=== PATIENT | male | born 1955 | race Caucasian/White ===

== ENCOUNTER 2021-09-06 06:20 | Day surgery (SDC) | payer MEDICARE ==
[~2021-09-06] VITALS: Ht 188 cm; Wt 128.0 kg
[~2021-09-06 06:20] MED LIST: CINNAMON500 MG PO; METOPROLOL SUCC50 MG PO; ONE-DAILY MULT1 EAC1 PO
--- NOTE | 2021-09-06 08:28 | NUR ---
09/06/21 0828 Chen Leary 0818 PATIENT ARRIVES TO PACU SLEEPING ON LEFT SIDE. AWAKENS WITH REPEATED VERBAL STIMULI, ROLLS TO BACK, BACK TO SLEEP. RESP EVEN AND UNLABORED, NC AT 2 LITERS. OXYGEN TURNED OFF.
--- NOTE | 2021-09-06 08:46 | NUR ---
PT TAKEN TO SCOPE RM BY OR STAFF, CONNECTED WITH PT'S . SHE HAS DECIDED TO REMAIN, WOULD LIKE TO VISIT WITH DR YOUNGBLOOD UPON COMPLETION OF SCOPE. GAVE HER DIRECTIONS AND ENCOURAGEMENT. WILL FOLLOW
--- NOTE | 2021-09-06 18:14 | EKG ---
[facility] [address] [facility] [place], [place] [address] Signed Sinus rhythm with frequent premature ventricular complexes Left axis deviation Abnormal ECG No previous ECGs available Confirmed by AMINATA GONZALEZ MD ([id number]) on 09/06/2021 6:14:25 PM Electronically Signed By: AMINATA GONZALEZ MD 09/06/211813 PATIENT NAME: RODRICK THRASHER STEFF Electrocardiogram DATE OF : 55 PHYSICIAN: AMINATA GONZALEZ MD REPORT #: [id number] REPORT IS CONFIDENTIAL AND NOT TO BE RELEASED WITHOUT AUTHORIZATION
--- NOTE | 2021-09-07 07:53 | OR ---
[facility] [address] [place], [place] [address] Signed DATE OF OPERATION: 09/06/2021 SURGEON: Riky Chow MD PREOPERATIVE DIAGNOSES: 1. Maternal grandmother with colon cancer in her 60s and of colon cancer at age 68. 2. Mother with Crohn disease. 3. Internal hemorrhoids. 4. Personal history of hyperplastic colonic polyps. 5. Diverticulosis. POSTOPERATIVE DIAGNOSES: 1. A 12 mm pedunculated polyp, proximal right colon/opposite ileocecal valve (snare). 2. A 12 mm sessile polyp mid right colon (snare). 3. 5 mm polyp at 65 cm. 4. 4 mm polyp at 40 cm. 5. Moderate sigmoid diverticulosis. 6. Minimal internal hemorrhoids. PROCEDURE: Colonoscopy with snare polypectomy x2 and hot biopsies. ESTIMATED BLOOD LOSS: None. INDICATIONS: Rodrick is a 66-year-old gentleman who returns now for his followup colonoscopy. His maternal grandmother was diagnosed with her colon cancer in her 60s. She from the colon cancer at age 68. His mother has Crohn disease. Rodrick underwent an initial sigmoidoscopy followed by colonoscopy [place] [address] Frye. He was age 38. He had hyperplastic sigmoid polyp removed along with internal hemorrhoid tissue. A followup sigmoidoscopy in [address] age of 43 [address] Delacruz. He had hyperplastic polyp removed. A repeat colonoscopy in 2001 at the age of 47 [address] Dietrich and had internal hemorrhoids along with minimal diverticulosis. I performed a colonoscopy for him in 2009 at the age of 54. He had several small hyperplastic polyps removed. He had diverticulosis. He did well with Versed and fentanyl. He came back in 10 years for repeat colonoscopy. He has no lower GI complaints. He felt strongly this was negative. He would probably not repeat his colonoscopy in the future. He wanted to come last year, but his back was quite bad and he had to recover in that regard. He told me today his back is doing much better. In the office I gave Rodrick a booklet on colonoscopy. Electronically Signed By: RIKY CHOW MD 09/07/21 0753 PATIENT NAME: RODRICK THRASHER OPERATIVE REPORT DATE OF : 55 REPORT #: [id number] PHYSICIAN: RIKY CHOW MD PCP: ADA FIELDS DO REPORT IS CONFIDENTIAL AND NOT TO BE RELEASED WITHOUT AUTHORIZATION [facility] [address] [place], [place] [address] Signed We reviewed the nature of the test along with the risks including, but not limited to gas bloating, crampy abdominal pain, bleeding, perforation requiring surgery, and missed diagnosis. We also reviewed the idea that polyps grow and become cancer over 8 to 12 years. Consequently, we normally have patient's back every five years if they have adenomas polyps and/or family history. He has done well with Versed and fentanyl in the past. He had expressed understanding and wished to proceed. PROCEDURE IN DETAIL: Rodrick was taken into our endoscopy suite and placed in the left lateral decubitus position. He was given a total of 11 mg of Versed and 200 mcg of fentanyl to cover the case. A digital rectal exam was performed and he has excellent sphincter tone. His prostate is moderately enlarged and indurated. The adult colonoscope had been introduced and advanced under direct visualization of camera. He took a little more sedation on this occasion in order to get up to the hepatic flexure. It took a few minutes to get past the hepatic flexure and down into the cecum itself. We could easily see the appendiceal orifice and the ileocecal valve. His prep was quite excellent. He had two polyps in his right colon. Both were removed with the help of hot biopsy forceps and the snare. We felt like both were completely removed. The scope was withdrawn. He does have moderate diverticulosis. They are moderate in size, moderate in number, and scattered about. Mostly left and sigmoid colon. He had two smaller polyps in his left colon removed as above. Once in the rectum, the scope had been retroflexed and very minimal internal hemorrhoid tissue. After this, the gas was suctioned out, colonoscope removed. We noticed that Rodrick has two normal beats followed by a third ventricular beat. He bradied several times with the Versed and fentanyl and went into what looked like bigeminy and trigeminy. We will go ahead and order an EKG in recovery room. He is quite healthy and golfs regularly and never has any symptoms. Nevertheless, he should follow this up with his primary care provider. RECOMMENDATIONS: Rodrick will follow up with myself in 7 to 14 days to review his results. He can follow up EKG with his primary care provider. MD ANNALISA Verdugo/PATRICEL /[id number] Electronically Signed By: RIKY CHOW MD 09/07/21 0753 PATIENT NAME: RODRICK THRASHER OPERATIVE REPORT DATE OF : 55 REPORT #: [id number] PHYSICIAN: RIKY CHOW MD PCP: ADA FIELDS DO REPORT IS CONFIDENTIAL AND NOT TO BE RELEASED WITHOUT AUTHORIZATION [facility] [address] [place], [place] [address] Signed cc: DO Riky Garcia MD Copies: ADA FIELDS ANDREW L MD ~ Electronically Signed By: RIKY CHOW MD 09/07/21 0753 PATIENT NAME: RODRICK THRASHER OPERATIVE REPORT DATE OF : 55 REPORT #: [id number] PHYSICIAN: RIKY CHOW MD PCP: ADA FIELDS DO REPORT IS CONFIDENTIAL AND NOT TO BE RELEASED WITHOUT AUTHORIZATION
--- NOTE | 2021-09-07 12:47 | PATH ---
[facility] [address], [place] [address] Signed SPECIMEN(S): A PROXIMAL ASCENDING/RIGHT COLON POLYP SPECIMEN(S): B MID ASCENDING/RIGHT COLON POLYP SPECIMEN(S): C COLON POLYP AT 65 CM SPECIMEN(S): D COLON POLYP AT 40 CM SPECIMEN SOURCE: A. PROXIMAL ASCENDING/RIGHT COLON POLYP B. MID ASCENDING/RIGHT COLON POLYP C. COLON POLYP AT 65 CM D. COLON POLYP AT 40 CM CLINICAL HISTORY: Personal history of colon polyps, family history of colon cancer. MICROSCOPIC DESCRIPTION: Histologic sections of all submitted blocks are examined by light microscopy. These findings, together with the gross examination, support the pathologic diagnosis. FINAL PATHOLOGIC DIAGNOSIS: A. Colon, proximal ascending/right, polypectomy: - Tubular adenoma. B. Colon, mid ascending/right, polypectomy: - Tubular adenoma. C. Colon, 65 cm, polypectomy: - Colonic mucosa with no significant pathologic changes. D. Colon, 40 cm, polypectomy: - Tubular adenoma. BRP:llc:[id number] GROSS DESCRIPTION: Four specimens are received in four containers, labeled "RA." A. The specimen, labeled "RA, proximal ascending colon polyp," is received in formalin and consists of multiple lund soft tissue fragments that measure 1.7 x 1.6 x 0.4 cm aggregate. The specimen is entirely submitted in cassette (A1). B. The specimen, labeled "RA, mid ascending colon polyp," is received in formalin and consists of multiple lund soft tissue fragments that measure 2.0 x 1.7 x 0.2 cm aggregate. The specimen is entirely submitted in cassette (B1). C. The specimen, labeled "RA, colon polyp at 65 cm," is received in formalin and consists of one lund soft tissue fragment that measures 0.1 cm in greatest PATIENT NAME: RODRICK THRASHER PATHOLOGY DATE OF : 55 REPORT #: [id number] PHYSICIAN: ALE PATHOLOGY PCP: ADA FIELDS DO REPORT IS CONFIDENTIAL AND NOT TO BE RELEASED WITHOUT AUTHORIZATION [facility] [address] [place], [place] [address] Signed dimension. The specimen is entirely submitted in cassette (C1). D. The specimen, labeled "RA, colon polyp at 40 cm," is received in formalin and consists of two lund soft tissue fragments that measure 0.1 cm in greatest dimension. The specimen is entirely submitted in cassette (D1). JS (under the direct supervision of a pathologist) The Gross Description was prepared using a voice recognition system. The report was reviewed for accuracy; however, sound-alike word errors, addition and/or deletions may occur. If there is any question about this report, please contact Client Services. PERFORMING LABORATORY: The technical component was performed by [facility], [address] [place] [id number] (Document Imaging Specialist: Mary Ann Kumar MD; CLIA# [id number]). Professional interpretation was performed by [facility], [address] [address] (CLIA# [id number]). Diagnostician: Wil Cortez MD Pathologist Electronically Signed 09/07/2021 Copies: ~ PATIENT NAME: RODRICK THRASHER PATHOLOGY DATE OF : 55 REPORT #: [id number] PHYSICIAN: ALE PATHOLOGY PCP: ADA FIELDS DO REPORT IS CONFIDENTIAL AND NOT TO BE RELEASED WITHOUT AUTHORIZATION
== END 2021-09-06 09:25 | disposition home or self-care (01) ==
LOC: DS 06:20 → OPS 06:20 → DS 06:45 → OPS 07:30 → DS 07:30 → OPS 09:25
PROVIDERS: ATTEND Colon & Rectal Surgery
PROC: 0DBF8ZZ Excision of Right Large Intestine, Via Natural or Artificial Opening Endoscopic (ICD-10-PCS; 2021-09-06)
PROC: 0DBG8ZZ Excision of Left Large Intestine, Via Natural or Artificial Opening Endoscopic (ICD-10-PCS; principal; 2021-09-06 07:30)
DX: D12.4 Benign neoplasm of descending colon (principal); D12.2 Benign neoplasm of ascending colon; K57.30 Diverticulosis of large intestine without perforation or abscess without bleeding; K64.8 Other hemorrhoids; N40.0 Benign prostatic hyperplasia without lower urinary tract symptoms; I10 Essential (primary) hypertension; Z80.0 Family history of malignant neoplasm of digestive organs
CPT/HCPCS: 93005; 93010; 99153; G0500; J2250; J3010; J7121